=== PATIENT | male | born 2000 | race Caucasian/White ===

== ENCOUNTER 2020-07-12 12:19 | Emergency (ER) | payer MEDICAID ==
[~2020-07-12] VITALS: Ht 182.9 cm; Wt 61.5 kg
[2020-07-12] MEDS ORDERED: ketorolac tromethamine 15mg/ml inj. IM ONE (13:25)
[2020-07-12] MEDS ORDERED: IBUP-1984 PO (14:14)
[2020-07-12 14:21] VITALS: BP 124/73
== END 2020-07-12 14:22 | disposition home or self-care (01) ==
LOC: ER 12:19
DX: R07.89 Other chest pain (principal); R42 Dizziness and giddiness; F17.200 Nicotine dependence, unspecified, uncomplicated; F12.90 Cannabis use, unspecified, uncomplicated
CPT/HCPCS: 71045; 96372; 99283; J1885

== ENCOUNTER 2020-11-25 15:08 | Emergency (ER) | payer MEDICAID ==
[~2020-11-25] VITALS: Ht 185.4 cm; Wt 80.3 kg
--- NOTE | 2020-11-25 16:21 | NUR ---
pt states, "I HAVE MORE SOB AFTER I EAT. "
[2020-11-25 17:35] VITALS: BP 122/79
== END 2020-11-25 17:38 | disposition home or self-care (01) ==
LOC: ER 15:09
DX: R07.89 Other chest pain (principal); F17.200 Nicotine dependence, unspecified, uncomplicated; F12.90 Cannabis use, unspecified, uncomplicated; Z72.89 Other problems related to lifestyle
CPT/HCPCS: 93005; 99283

== ENCOUNTER 2020-11-27 11:45 | Emergency (ER) | payer MEDICAID ==
[~2020-11-27] VITALS: Ht 182.9 cm; Wt 76.1 kg
[2020-11-27] MEDS ORDERED: famotidine/PF 10 mg/ml inj IV ONE (12:25)
[2020-11-27] MEDS ORDERED: LIDOcaine Viscous 15ml cup MM ONE (12:25)
[2020-11-27] MEDS ORDERED: normal saline 1000ML IV soln IV ONE (12:25)
[2020-11-27] MEDS ORDERED: metoclopramide 5 mg/ml inj IV ONE (12:25)
[2020-11-27] MEDS ORDERED: mag hydrox/Alum hydrox/simeth 30ml oral suspension PO ONE (12:25)
[2020-11-27 12:52] LABS: BASOPHILS # (AUTO) 0.1 X10'3 (0-0.2); BASOPHILS % (AUTO) 1.7 % (0-1); EOSINOPHILS % (AUTO) 0.9 % (0-6); HEMATOCRIT 43.1 % (42.0-52.0); HEMOGLOBIN 15.2 g/dl (14.0-17.9); LYMPHOCYTES % (AUTO) 24.3 % (21-51); MEAN CORPUSCULAR HEMOGLOBIN 32.8 PG (27.0-31.0); MEAN CORPUSCULAR HGB CONC 35.2 g/dL (33.0-36.5); MEAN CORPUSCULAR VOLUME 93.3 FL (78-98); MEAN PLATELET VOLUME 7.2 FL (7.4-10.4); MONOCYTES # (AUTO) 0.4 X10'3 (0-0.9); MONOCYTES % (AUTO) 9.6 % (2-12); NEUTROPHILS # (AUTO) 2.5 X10'3 (1.8-7.7); NEUTROPHILS % (AUTO) 63.5 % (42-75); PLATELET COUNT 243 X10'3 (140-440); RED BLOOD COUNT 4.62 X10'6 (4.70-6.10); RED CELL DISTRIBUTION WIDTH 12.3 % (11.5-14.5); WHITE BLOOD COUNT 3.9 X10'3 (4.5-11.0)
[2020-11-27 13:09] LABS: ALANINE AMINOTRANSFERASE 84 U/L (12-78); ALBUMIN 4.1 G/DL (3.4-5.0); ALBUMIN/GLOBULIN RATIO 1.4 (1.1-1.5); ALKALINE PHOSPHATASE 113 IU/L (46-116); ANION GAP 11 (8-16); ASPARTATE AMINO TRANSFERASE 113 U/L (10-37); BILIRUBIN,TOTAL 0.4 MG/DL (0.1-1.0); BLOOD UREA NITROGEN 13 MG/DL (7-18); BUN/CREATININE RATIO 15.1 (5.4-32.0); CALCIUM 8.7 MG/DL (8.5-10.1); CHLORIDE 104 MMOL/L (99-107); CREATININE 0.86 MG/DL (0.60-1.10); GLUCOSE 90 MG/DL (70-104); POTASSIUM 3.7 MMOL/L (3.5-5.1); SODIUM 141 MMOL/L (135-145); TOTAL PROTEIN 7.1 G/DL (6.4-8.2); eGFR > 90 ML/MIN
[2020-11-27 15:27] VITALS: BP 122/78
--- NOTE | 2020-11-27 15:27 | NUR ---
maynor spoke to pt .
== END 2020-11-27 15:29 | disposition home or self-care (01) ==
LOC: ER 11:46
DX: K29.20 Alcoholic gastritis without bleeding (principal); F10.99 Alcohol use, unspecified with unspecified alcohol-induced disorder; F17.210 Nicotine dependence, cigarettes, uncomplicated; F12.90 Cannabis use, unspecified, uncomplicated; Z72.89 Other problems related to lifestyle; Y90.9 Presence of alcohol in blood, level not specified
CPT/HCPCS: 36415; 80053; 85025; 85610; 93005; 96361; 96374; 96375; 99284; J2765; J3490; J7030

== ENCOUNTER 2020-11-27 21:31 | Emergency (ER) | payer MEDICAID ==
[~2020-11-27] VITALS: Ht 185.4 cm; Wt 77.3 kg
[2020-11-27] MEDS ORDERED: normal saline 1000ml 1,000 ML IV ONE (21:55)
[2020-11-27] MEDS ORDERED: LORazepam 2 mg/ml vial IV ONE (21:55)
[2020-11-27 22:03] LABS: BASOPHILS % (AUTO) 0.7 % (0-1); EOSINOPHILS % (AUTO) 0.3 % (0-6); HEMATOCRIT 39.2 % (42.0-52.0); HEMOGLOBIN 13.7 g/dl (14.0-17.9); LYMPHOCYTES # (AUTO) 1.5 X10'3 (1.1-4.8); LYMPHOCYTES % (AUTO) 21.5 % (21-51); MEAN CORPUSCULAR HEMOGLOBIN 32.2 PG (27.0-31.0); MEAN CORPUSCULAR HGB CONC 34.8 g/dL (33.0-36.5); MEAN CORPUSCULAR VOLUME 92.7 FL (78-98); MEAN PLATELET VOLUME 7.4 FL (7.4-10.4); MONOCYTES # (AUTO) 0.7 X10'3 (0-0.9); MONOCYTES % (AUTO) 9.6 % (2-12); NEUTROPHILS # (AUTO) 4.8 X10'3 (1.8-7.7); NEUTROPHILS % (AUTO) 67.9 % (42-75); PLATELET COUNT 248 X10'3 (140-440); RED BLOOD COUNT 4.23 X10'6 (4.70-6.10); RED CELL DISTRIBUTION WIDTH 12.3 % (11.5-14.5); WHITE BLOOD COUNT 7.1 X10'3 (4.5-11.0)
[2020-11-27 22:13] LABS: ALANINE AMINOTRANSFERASE 71 U/L (12-78); ALBUMIN 4.1 G/DL (3.4-5.0); ALBUMIN/GLOBULIN RATIO 1.6 (1.1-1.5); ALKALINE PHOSPHATASE 102 IU/L (46-116); ANION GAP 14 (8-16); ASPARTATE AMINO TRANSFERASE 78 U/L (10-37); BILIRUBIN,TOTAL 0.7 MG/DL (0.1-1.0); BLOOD UREA NITROGEN 12 MG/DL (7-18); BUN/CREATININE RATIO 13.8 (5.4-32.0); CHLORIDE 103 MMOL/L (99-107); CREATININE 0.87 MG/DL (0.60-1.10); GLUCOSE 108 MG/DL (70-104); POTASSIUM 3.2 MMOL/L (3.5-5.1); SODIUM 139 MMOL/L (135-145); TOTAL CARBON DIOXIDE 22.1 MMOL/L (24-32); TOTAL PROTEIN 6.7 G/DL (6.4-8.2); eGFR > 90 ML/MIN
[2020-11-27 22:16] LABS: LIPASE 83 U/L (73-393); MAGNESIUM 1.7 MG/DL (1.5-2.4); TROPONIN I < 0.04 NG/ML (0.0-0.05)
[2020-11-27] MEDS ORDERED: potassium Cl 20 mEq SR tablet PO ONE (22:20)
[2020-11-27 22:22] LABS: ETHANOL < 0.010 GM/DL (0.0-0.010)
--- NOTE | 2020-11-27 22:30 | NUR ---
PT STATES HE IS UNABLE TO URINATE AT THIS TIME.
[2020-11-27 22:58] VITALS: BP 120/69
== END 2020-11-27 23:01 | disposition home or self-care (01) ==
LOC: ER 21:31
DX: S20.212A Contusion of left front wall of thorax, initial encounter (principal); R07.89 Other chest pain; X50.9XXA Other and unspecified overexertion or strenuous movements or postures, initial encounter; Y93.89 Activity, other specified; Y92.838 Other recreation area as the place of occurrence of the external cause; Y99.8 Other external cause status
CPT/HCPCS: 36415; 71045; 80053; 80320; 83690; 83735; 84484; 85025; 93005; 96361; 96374; 99285; J2060; J7030

== ENCOUNTER 2021-03-18 17:46 | Emergency (ER) | payer MEDICAID ==
[~2021-03-18] VITALS: Ht 182.9 cm; Wt 77.0 kg
[2021-03-18 18:09] VITALS: BP 151/91
[2021-03-18 18:39] LABS: BASOPHILS % (AUTO) 0.4 % (0-1); EOSINOPHILS # (AUTO) 0.1 X10'3 (0-0.9); HEMATOCRIT 43.4 % (42.0-52.0); HEMOGLOBIN 15.1 g/dl (14.0-17.9); LYMPHOCYTES # (AUTO) 1.1 X10'3 (1.1-4.8); LYMPHOCYTES % (AUTO) 10.4 % (21-51); MEAN CORPUSCULAR HEMOGLOBIN 32.7 PG (27.0-31.0); MEAN CORPUSCULAR HGB CONC 34.9 g/dL (33.0-36.5); MEAN CORPUSCULAR VOLUME 93.9 FL (78-98); MEAN PLATELET VOLUME 7.9 FL (7.4-10.4); MONOCYTES % (AUTO) 9.8 % (2-12); NEUTROPHILS # (AUTO) 8.1 X10'3 (1.8-7.7); NEUTROPHILS % (AUTO) 78.4 % (42-75); PLATELET COUNT 300 X10'3 (140-440); RED BLOOD COUNT 4.63 X10'6 (4.70-6.10); RED CELL DISTRIBUTION WIDTH 12.1 % (11.5-14.5); WHITE BLOOD COUNT 10.3 X10'3 (4.5-11.0)
[2021-03-18 18:51] LABS: ALANINE AMINOTRANSFERASE 42 U/L (12-78); ALBUMIN 4.4 G/DL (3.4-5.0); ALBUMIN/GLOBULIN RATIO 1.5 (1.1-1.5); ALKALINE PHOSPHATASE 98 IU/L (46-116); ANION GAP 10 (8-16); ASPARTATE AMINO TRANSFERASE 38 U/L (10-37); BILIRUBIN,TOTAL 0.7 MG/DL (0.1-1.0); BLOOD UREA NITROGEN 14 MG/DL (7-18); BUN/CREATININE RATIO 15.2 (5.4-32.0); CALCIUM 9.6 MG/DL (8.5-10.1); CHLORIDE 101 MMOL/L (99-107); CREATININE 0.92 MG/DL (0.60-1.10); GLUCOSE 109 MG/DL (70-104); LIPASE 836 U/L (73-393); POTASSIUM 3.7 MMOL/L (3.5-5.1); SODIUM 138 MMOL/L (135-145); TOTAL CARBON DIOXIDE 26.7 MMOL/L (24-32); TOTAL PROTEIN 7.4 G/DL (6.4-8.2); eGFR > 90 ML/MIN
[2021-03-18] MEDS ORDERED: HYDROcodone/acetaminophen 5mg/325mg tablet PO ONE (19:35)
[2021-03-18] MEDS ORDERED: ketorolac trometh. 30mg/ml inj. IV ONE (19:35)
[2021-03-18] MEDS ORDERED: ondansetron 4mg rapidly disintigrating tab PO ONE (19:35)
[2021-03-18] MEDS ORDERED: ONDA4TAB6 PO (19:37)
[2021-03-18] MEDS ORDERED: HYDR-3965 PO (19:37)
[2021-03-18] MEDS ORDERED: ketorolac trometh. 30mg/ml inj. IM ONE (19:50)
== END 2021-03-18 20:11 | disposition home or self-care (01) ==
LOC: ER 17:46
DX: K85.20 Alcohol induced acute pancreatitis without necrosis or infection (principal); R10.11 Right upper quadrant pain; F12.90 Cannabis use, unspecified, uncomplicated; Z72.89 Other problems related to lifestyle; Z79.899 Other long term (current) drug therapy
CPT/HCPCS: 36415; 80053; 83690; 85025; 96372; 99283; J1885

== ENCOUNTER 2021-05-20 07:17 | Emergency (ER) | payer MEDICAID ==
[~2021-05-20] VITALS: Ht 182.9 cm; Wt 77.3 kg
[~2021-05-20 07:17] MED LIST: ONDA4TAB6 PO
[2021-05-20 08:19] LABS: BASOPHILS % (AUTO) 0.5 % (0-1); EOSINOPHILS % (AUTO) 0.5 % (0-6); HEMATOCRIT 43.8 % (42.0-52.0); HEMOGLOBIN 15.1 g/dl (14.0-17.9); LYMPHOCYTES # (AUTO) 1.3 X10'3 (1.1-4.8); LYMPHOCYTES % (AUTO) 14.1 % (21-51); MEAN CORPUSCULAR HGB CONC 34.6 g/dL (33.0-36.5); MEAN CORPUSCULAR VOLUME 92.7 FL (78-98); MEAN PLATELET VOLUME 7.4 FL (7.4-10.4); MONOCYTES # (AUTO) 0.4 X10'3 (0-0.9); NEUTROPHILS # (AUTO) 7.2 X10'3 (1.8-7.7); NEUTROPHILS % (AUTO) 79.9 % (42-75); PLATELET COUNT 291 X10'3 (140-440); RED BLOOD COUNT 4.73 X10'6 (4.70-6.10); RED CELL DISTRIBUTION WIDTH 12.7 % (11.5-14.5)
[2021-05-20 08:52] LABS: ALANINE AMINOTRANSFERASE 26 U/L (12-78); ALBUMIN 4.1 G/DL (3.4-5.0); ALBUMIN/GLOBULIN RATIO 1.3 (1.1-1.5); ALKALINE PHOSPHATASE 83 IU/L (46-116); ANION GAP 13 (8-16); ASPARTATE AMINO TRANSFERASE 29 U/L (10-37); BILIRUBIN,TOTAL 0.5 MG/DL (0.1-1.0); BLOOD UREA NITROGEN 16 MG/DL (7-18); BUN/CREATININE RATIO 19.5 (5.4-32.0); CHLORIDE 105 MMOL/L (99-107); CREATININE 0.82 MG/DL (0.60-1.10); GLUCOSE 116 MG/DL (70-104); POTASSIUM 3.3 MMOL/L (3.5-5.1); SODIUM 142 MMOL/L (135-145); TOTAL CARBON DIOXIDE 24.3 MMOL/L (24-32); TOTAL PROTEIN 7.2 G/DL (6.4-8.2); eGFR > 90 ML/MIN
[2021-05-20] MEDS ORDERED: ondansetron/PF 4mg/2ml inj IV ONE (09:05)
[2021-05-20] MEDS ORDERED: normal saline 1000ML IV soln IV ONE (09:05)
[2021-05-20] MEDS ORDERED: potassium Cl 20 mEq SR tablet PO STA (09:13)
[2021-05-20 11:15] VITALS: BP 120/73
== END 2021-05-20 11:16 | disposition home or self-care (01) ==
LOC: ER 07:18
DX: T67.5XXA Heat exhaustion, unspecified, initial encounter (principal); E86.0 Dehydration; E87.6 Hypokalemia; R42 Dizziness and giddiness; R11.0 Nausea; Z72.89 Other problems related to lifestyle; F12.90 Cannabis use, unspecified, uncomplicated; Z79.899 Other long term (current) drug therapy; X58.XXXA Exposure to other specified factors, initial encounter; Y93.89 Activity, other specified; Y92.89 Other specified places as the place of occurrence of the external cause; Y99.8 Other external cause status
CPT/HCPCS: 36415; 71045; 80053; 84484; 85025; 93005; 96361; 96374; 99285; J2405; J7030

== ENCOUNTER 2022-01-18 10:47 | Emergency (ER) | payer MEDICAID ==
[~2022-01-18] VITALS: Ht 182.9 cm; Wt 77.3 kg
[2022-01-18 11:15] LABS: BASOPHILS # (AUTO) 0.1 X10'3 (0-0.2); BASOPHILS % (AUTO) 1.4 % (0-1); EOSINOPHILS % (AUTO) 0.5 % (0-6); HEMATOCRIT 42.3 % (42.0-52.0); HEMOGLOBIN 14.6 g/dl (14.0-17.9); LYMPHOCYTES # (AUTO) 1.4 X10'3 (1.1-4.8); LYMPHOCYTES % (AUTO) 37.3 % (21-51); MEAN CORPUSCULAR HEMOGLOBIN 32.4 PG (27.0-31.0); MEAN CORPUSCULAR HGB CONC 34.5 g/dL (33.0-36.5); MEAN CORPUSCULAR VOLUME 93.9 FL (78-98); MEAN PLATELET VOLUME 7.6 FL (7.4-10.4); MONOCYTES # (AUTO) 0.4 X10'3 (0-0.9); MONOCYTES % (AUTO) 9.9 % (2-12); NEUTROPHILS # (AUTO) 1.9 X10'3 (1.8-7.7); NEUTROPHILS % (AUTO) 50.9 % (42-75); PLATELET COUNT 254 X10'3 (140-440); RED CELL DISTRIBUTION WIDTH 12.9 % (11.5-14.5); WHITE BLOOD COUNT 3.8 X10'3 (4.5-11.0)
[2022-01-18 11:28] LABS: ALBUMIN 3.8 G/DL (3.4-5.0); ALBUMIN/GLOBULIN RATIO 1.5 (1.1-1.5); ALKALINE PHOSPHATASE 172 IU/L (46-116); BLOOD UREA NITROGEN 17 MG/DL (7-18); BUN/CREATININE RATIO 16.7 (5.4-32.0); CALCIUM 8.2 MG/DL (8.5-10.1); CREATININE 1.02 MG/DL (0.60-1.10); LIPASE 59 U/L (73-393); SODIUM 138 MMOL/L (135-145); TOTAL CARBON DIOXIDE 23.9 MMOL/L (24-32); TOTAL PROTEIN 6.4 G/DL (6.4-8.2); eGFR > 90 ML/MIN
[2022-01-18 11:41] LABS: ALANINE AMINOTRANSFERASE 186 U/L (12-78); ANION GAP 12 (8-16); ASPARTATE AMINO TRANSFERASE 234 U/L (10-37); CHLORIDE 102 MMOL/L (99-107); GLUCOSE 125 MG/DL (70-104); POTASSIUM 4.1 MMOL/L (3.5-5.1)
[2022-01-18] MEDS ORDERED: famotidine/PF 10 mg/ml inj IV ONE (12:45)
[2022-01-18] MEDS ORDERED: sucralfate 1 gm tablet PO ONE (12:45)
[2022-01-18] MEDS ORDERED: OMEP40CA21 PO (13:15)
[2022-01-18] MEDS ORDERED: famotidine 20MG/2.5ML oral suspension PO STA (13:28)
[2022-01-18] MEDS ORDERED: famotidine 20mg tablet PO STA (13:34)
[2022-01-18 14:24] VITALS: BP 158/65
== END 2022-01-18 14:28 | disposition home or self-care (01) ==
LOC: ER 10:47
DX: K29.20 Alcoholic gastritis without bleeding (principal); F10.10 Alcohol abuse, uncomplicated; Z79.899 Other long term (current) drug therapy; F12.90 Cannabis use, unspecified, uncomplicated; Y90.9 Presence of alcohol in blood, level not specified
CPT/HCPCS: 36415; 80053; 83690; 85025; 99283

== ENCOUNTER 2022-10-28 13:49 | Emergency (ER) | payer MEDICAID ==
[~2022-10-28] VITALS: Ht 185.4 cm; Wt 77.2 kg
[2022-10-28 14:47] VITALS: BP 125/78
== END 2022-10-28 19:32 | disposition left against medical advice (07) ==
LOC: ER 13:50
DX: M25.531 Pain in right wrist (principal); Z53.21 Procedure and treatment not carried out due to patient leaving prior to being seen by health care provider

== ENCOUNTER 2023-11-29 22:26 | Emergency (ER) | payer MEDICAID ==
[~2023-11-29] VITALS: Ht 182.9 cm; Wt 83.6 kg
[2023-11-29 22:27] VITALS: BP 123/73; PULSE 85; RESP 17; TEMP 98.6; O2SAT 99
[2023-11-29] MEDS ORDERED: ibuprofen tablet 400 MG TABLET PO ONE (23:05)
== END 2023-11-29 23:12 | disposition home or self-care (01) ==
LOC: ER 22:27
DX: R07.89 Other chest pain (principal); M54.9 Dorsalgia, unspecified; Z79.899 Other long term (current) drug therapy
CPT/HCPCS: 71045; 93005; 99283

== ENCOUNTER 2024-05-01 11:55 | Emergency (ER) | payer MEDICAID ==
[~2024-05-01] VITALS: Ht 185.4 cm; Wt 76.8 kg
[2024-05-01 11:55] VITALS: BP 123/73; PULSE 89; TEMP 98.6; O2SAT 100
[2024-05-01] MEDS: ketorolac tromethamine 15mg/ml inj. IM ONE (12:51)
[2024-05-01 12:52] VITALS: RESP 16
[2024-05-01] MEDS: HYDROcodone/acetaminophen 5mg/325mg tablet PO ONE (12:52)
[2024-05-01] MEDS ORDERED: HYDR-3965 PO (12:56)
== END 2024-05-01 13:38 | disposition home or self-care (01) ==
LOC: ER 11:55
DX: S42.032A Displaced fracture of lateral end of left clavicle, initial encounter for closed fracture (principal); F12.90 Cannabis use, unspecified, uncomplicated; F10.10 Alcohol abuse, uncomplicated; Z79.2 Long term (current) use of antibiotics; Z79.899 Other long term (current) drug therapy; W22.8XXA Striking against or struck by other objects, initial encounter; Y93.89 Activity, other specified; Y92.89 Other specified places as the place of occurrence of the external cause; Y99.8 Other external cause status
CPT/HCPCS: 73030; 96372; 99284; J1885; A4565

== ENCOUNTER 2025-09-19 15:16 | Outpatient (CLI) | payer MEDICAID ==
--- NOTE | 2025-09-19 20:42 | RADIOLOGY REPORT ---
Procedure: DI NECK FOR SOFT TISSUES Exam Date: 09/19/2025 03:31 PM History: PALPABLE MASS Comparison Study: None Soft Tissue Neck: AP and lateral views. Findings: No evidence of soft tissue swelling or radiopaque foreign body. Epiglottis appears normal. Impression: Negative soft tissue neck. ct SUGGESTED
== END 2025-09-19 23:59 | disposition home or self-care (01) ==
LOC: RAD 15:16
PROVIDERS: ATTEND Family Medicine
DX: R22.1 Localized swelling, mass and lump, neck (principal)
CPT/HCPCS: 70360

== ENCOUNTER 2025-11-17 12:39 | Emergency (ER) | payer MEDICAID ==
[~2025-11-17] VITALS: Ht 185.4 cm; Wt 84.1 kg
[2025-11-17 12:40] VITALS: BP 161/97; PULSE 120; RESP 16; O2SAT 94
--- NOTE | 2025-11-17 13:09 | RADIOLOGY REPORT ---
INDICATION: ANKLE PAIN TECHNIQUE: DI ANKLE, COMPLETE(3VW MIN)ANKLECPLT Comparison: None FINDINGS/IMPRESSION: Fracture of the distal fibular metadiaphysis, lateral malleolus that appears to be a multipart fracture with at least 3 mm cortical offset. Lateral malleolar soft tissue edema.
--- NOTE | 2025-11-17 13:48 | Physician Documentation ---
History of Present Illness ~ Chief Complaint: Ankle pain Stated Complaint: R ANKLE PAIN Time Seen by MD: 13:20 [facility] patient Mode of Arrival: POV Exam Limitations: no limitations HPI 25-year-old male with skateboarding the day before and was going down a downhill ramp and rolled his right ankle Tetanus witin 5 years: No Medication Reconciliation Allergies: Coded Allergies: No Known Allergies (Unverified , 11/29/23) Scheduled Ondansetron Hcl (Zofran), 1-2 TAB PO Q6H Past Medical History Past Medical History: *GI/HEPATOBILIARY* Past Surgical History: noncontributory Alcohol Use: Abuse Drug Use: marijuana Lives In: Home Occupation: employed Review of Systems Musculoskeletal: Reports: see HPI Physical Exam Vital Signs: RN Vital Signs have been reviewed: Yes, Temperature: 98.0, Source: Temporal, Heart Rate: 120, Respiratory Rate: 16, BP: 161/97, Pulse Oximetry: 94, Weight: 84.090 Oxygen Flow Rate: 0 Physical Exam General: Alert, no apparent distress. HEENT: moist mucous membranes. Neck: Full range of motion. Respiratory: No respiratory distress speaking in full sentences Chest: No accessory muscle use. Cardiovascular: Appears well perfused Neurologic: Oriented x4. Extremity: Moderate swelling and bruising to the lateral aspect of the right ankle +2 pedal pulse limited range of motion due to pain Psychiatric: Normal mood and affect. Skin: Normal color, warm and dry. No edema, no ecchymosis. Progress Results/Orders Results/Orders Vital Signs 11/17/25 12:40 Temp 98.0 Pulse 120 Resp 16 B/P (MAP) 161/97 Pulse Ox 94 O2 Flow Rate 0 EKG/XRAY/CT/US/VASC/MRI Bone/Soft Tissue X-Ray (Ext.) : Additional Comment INDICATION: ANKLE PAIN TECHNIQUE: DI ANKLE, COMPLETE(3VW MIN)ANKLECPLT Comparison: None FINDINGS/IMPRESSION: Fracture of the distal fibular metadiaphysis, lateral malleolus that appears to be a multipart fracture with at least 3 mm cortical offset. Lateral malleolar soft tissue edema. Medical Decision Making Additional information obtaine: N/A Findings X-ray to evaluate for fracture versus sprain fibular fracture noted. Splint crutches and ortho referral placed General Diff Dx:Considerations: Unlikely: Abrasion, Contusion, Fracture, Hematoma, Laceration, Malunion, Neurovascular injury, Open fracture, Sprain, Ulcer, Other Knee Diff Dx:Considerations: Unlikely: Abrasion, Arthritis, Contusion, DJD, Fracture-femur, Fracture-fibula, Fracture-patella, Fracture-tibia, Gout, Hematoma, Laceration, Meniscus injury, Neurovascular injury, Open fracture, Rheumatoid arthritis, Septic, Sprain, Sprain-MCL, Sprain-LCL, Sprain-ACL, Sprain-PCL, Other Ankle Diff Dx:Considerations: Include: Fracture-fibula, Fracture-tibia Foot Diff Dx:Considerations: Unlikely: Abrasion, Arthritis, Cellulitis, Contusion, Dislocation, DJD, Fracture-metatarsal, Fracture-phalynx, Fracture- tarsal, Gout, Hematoma, Ingrown toenail, Laceration, Malunion, Neurovascular injury, Open fracture, Paronychia, Puncture, Rheumatoid, Sprain, Septic, Subungual hematoma, Ulcer, Other Toe Diff Dx:Considerations: Unlikely: Abrasion, Cellulitis, Contusion, Dislocation, Felon, Fracture, Hematoma, Laceration, Neurovascular injury, Open fracture, Paronychia, Subungual hematoma, Other Departure Time of Disposition: 13:50 Disposition: HOME / SELF CARE / HOMELESS Impression: Primary Impression: Closed fibular fracture Additional Impression: Other skateboard accident, initial encounter Condition: Stable Discharge Instructions: Ankle Fracture Additional Instructions: Wear splint and use crutches until evaluated by orthopedics. Call orthopedics on Thursday. Rest ice compress and elevate use Tylenol or ibuprofen as needed for [id number] pain. Referrals: NO PRIMARY CARE PROVIDER (PCP) JOSE [facility] Education Educated: Patient Educated regarding: diagnosis, treatment, need for follow up Signature Scribe Signature: No scribe Attestation: The note accurately reflects work and decisions made by me.Tha FERNANDEZ 11/17/25 13:51 THA PITTMAN NP Nov 17, 2025 13:48
[2025-11-17 15:45] VITALS: TEMP 98
== END 2025-11-17 15:46 | disposition home or self-care (01) ==
LOC: ER 12:40
DX: S82.61XA Displaced fracture of lateral malleolus of right fibula, initial encounter for closed fracture (principal); F12.90 Cannabis use, unspecified, uncomplicated; F10.10 Alcohol abuse, uncomplicated; Z79.899 Other long term (current) drug therapy; Y90.9 Presence of alcohol in blood, level not specified; X50.1XXA Overexertion from prolonged static or awkward postures, initial encounter; Y93.51 Activity, roller skating (inline) and skateboarding; Y92.89 Other specified places as the place of occurrence of the external cause; Y99.8 Other external cause status
CPT/HCPCS: 29515; 73610; 99283; A6446; A6449; L1930